=== PATIENT | male | born 1990 | race Caucasian/White ===

== ENCOUNTER 2024-12-05 16:12 | Emergency (ER) | payer BC ==
[~2024-12-05] VITALS: Ht 180.3 cm; Wt 79.4 kg
[2024-12-05 16:21] VITALS: BP 139/82; TEMP 98.7
[2024-12-05] MEDS: TDAP [DIPH/PERTUSSIS/TET] 0.5 ML VIAL IM ONE (17:00)
[2024-12-05] MEDS ORDERED: BACITRACIN ZINC OINT PACKET 1 EA PACKET TP ONE (17:02)
[2024-12-05] MEDS ORDERED: IBUPROFEN 600 MG TABLET ONE (17:02)
[2024-12-05] MEDS: IBUPROFEN 600 MG TABLET PO ONE (17:16)
[2024-12-05] MEDS: BACITRACIN ZINC OINT PACKET 1 EA PACKET TP ONE (17:16)
[2024-12-05] MEDS ORDERED: IBUP-1490 PO (17:41)
[2024-12-05] MEDS ORDERED: METH-647 PO (18:18)
[2024-12-05 20:02] VITALS: O2SAT 99
== END 2024-12-05 18:27 | disposition home or self-care (01) ==
LOC: ER 16:19
DX: S62.524A Nondisplaced fracture of distal phalanx of right thumb, initial encounter for closed fracture (principal); V43.52XA Car driver injured in collision with other type car in traffic accident, initial encounter; Y93.89 Activity, other specified; Y92.410 Unspecified street and highway as the place of occurrence of the external cause; Y99.8 Other external cause status
CPT/HCPCS: 73030-TC; 73110; 73130-TC; 73590-TC